=== PATIENT | female | born 1985 | race Two or more races ===

== ENCOUNTER 2022-07-24 19:20 | Observation (INO) | payer SELFPAY ==
[~2022-07-24] VITALS: Ht 160 cm; Wt 76.3 kg
[2022-07-24 20:39] VITALS: BP 111/71
[2022-07-24 20:50] LABS: BASOPHILS % (AUTO) 0.6 % (0.0-2.0); EOSINOPHILS # (AUTO) 0.1 K/uL (0-0.4); EOSINOPHILS % (AUTO) 1.1 % (0.0-4.0); HEMATOCRIT 28.2 % (36-48); HEMOGLOBIN 9.4 g/dL (12.0-16.0); LYMPHOCYTES # (AUTO) 2.1 K/uL (2.5-16.5); LYMPHOCYTES % (AUTO) 28.9 % (20.5-51.1); MEAN CORPUSCULAR HEMOGLOBIN 25 pg (27-31); MEAN CORPUSCULAR HGB CONC 33 g/dL (33-37); MEAN CORPUSCULAR VOLUME 73.9 fL (80-94); MONOCYTES # (AUTO) 0.4 K/uL (0.8-1.0); MONOCYTES % (AUTO) 5.7 % (1.7-9.3); NEUTROPHILS # (AUTO) 4.7 K/uL (1.8-7.7); NEUTROPHILS % (AUTO) 63.7 % (42.2-75.2); PLATELET COUNT (AUTO) 356 K/uL (140-450); RED BLOOD CELL COUNT(AUTO) 3.81 MIL/uL (4.20-5.40); RED CELL DISTRIBUTION WIDTH 15.6 % (11.6-13.7); WHITE BLOOD COUNT (AUTO) 7.4 K/uL (4.8-10.8)
[2022-07-24 21:05] LABS: BILIRUBIN,URINE NEGATIVE (NEGATIVE); BLOOD, URINE NEGATIVE (NEGATIVE); COLOR,URINE YELLOW (YELLOW); LEUKOCYTE ESTERASE ,URINE 3+ (NEGATIVE); NITRITE, URINE POSITIVE (NEGATIVE); UGLUCOSE NEGATIVE (NEGATIVE)
[2022-07-24 21:24] LABS: APPEARANCE,URINE CLOUDY (CLEAR)
[2022-07-24 21:40] LABS: BARBITURATE, URINE NEGATIVE ng/ml (NEG <=200); BENZODIAZEPINE, URINE NEGATIVE ng/mL (NEG <=200); CANNABINOID, URINE NEGATIVE ng/mL (NEG <=50); COCAINE, URINE NEGATIVE ng/mL (NEG <=300); OPIATE, URINE NEGATIVE ng/mL (NEG <=2000); PHENCYCLIDINE SCREEN,URINE NEGATIVE ng/mL (NEG <=25)
[2022-07-24 21:41] LABS: RBC,URINE NONE SEEN /HPF (0-5); WBC,URINE 80-100 /HPF (0-5)
[2022-07-24 21:45] LABS: ANION GAP 8.7 (8-16); CARBON DIOXIDE 27.6 mmol/L (21-32); POTASSIUM 3.3 mmol/L (3.5-5.1)
[2022-07-24 21:46] LABS: TOTAL BILIRUBIN 0.2 mg/dL (0.0-1.0)
[2022-07-24 21:47] LABS: ALBUMIN 2.1 g/dL (3.4-5.0)
[2022-07-24] MEDS ORDERED: cefTRIAXone 1,000 MG in LIDOCAINE MPF 1% 2.1 ML IM ONE (22:05)
[2022-07-24] MEDS ORDERED: cefTRIAXone 1,000 MG VIAL ONE (22:10)
[2022-07-24] MEDS ORDERED: LIDOCAINE 1% 500 MG/50 ML VIAL ONE (22:17)
[2022-07-24] MEDS ORDERED: cefTRIAXone 1,000 MG in LIDOCAINE MPF 1% 2.1 ML INJ SCH (22:35)
[2022-07-25 08:08] LABS: HEPATITIS B SURFACE ANTIGEN Negative (Negative)
[2022-07-26 09:59] LABS: CREATININE 0.7 mg/dL (0.6-1.3)
== END 2022-07-24 23:01 | disposition home or self-care (01) ==
LOC: MLD 19:20
PROVIDERS: ADMIT Obstetrics & Gynecology; ATTEND Obstetrics & Gynecology
DX: O26.892 Other specified pregnancy related conditions, second trimester (principal); R10.9 Unspecified abdominal pain; O99.891 Other specified diseases and conditions complicating pregnancy; M54.9 Dorsalgia, unspecified; Z3A.23 23 weeks gestation of pregnancy
CPT/HCPCS: 36415; 59025; 76805; 76817; 80053; 80305; 81001; 85025; 86592; 86703; 86762; 86886; 86900; 86901; 87086; 87340; 96372; G0378; J0696; J2001; Q0092

== ENCOUNTER 2022-09-27 09:57 | Observation (INO) | payer SELFPAY ==
--- NOTE | 2022-09-27 11:17 | NUR ---
PATIENT HAS BEEN SCREENED AND CATEGORIZED LOW NUTRITION RISK. PATIENT WILL BE SEEN WITHIN 7 DAYS OF ADMISSION. 10/04/22 REVIEWED BY GIA [address]
--- NOTE | 2022-10-12 08:07 | NUR ---
SS/CM DC PT DISCHARGED 09/27/22 @ 1135 Addendum: 10/12/22 at 0807 by Luiz Jimenez SS Amended: Links added.
== END 2022-09-27 11:35 | disposition home or self-care (01) ==
LOC: MLD 09:57
PROVIDERS: ADMIT Obstetrics & Gynecology; ATTEND Obstetrics & Gynecology
DX: O26.893 Other specified pregnancy related conditions, third trimester (principal); Z20.822 Contact with and (suspected) exposure to COVID-19; R10.9 Unspecified abdominal pain; Z3A.32 32 weeks gestation of pregnancy
CPT/HCPCS: 81000; 87426; G0378